=== PATIENT | female | born 1985 | race Caucasian/White ===

== ENCOUNTER 2018-02-03 17:10 | Inpatient (IN) | payer OTHER ==
[~2018-02-03] VITALS: Ht 170.2 cm; Wt 57.7 kg
[2018-02-03 17:26] VITALS: BP 111/68
--- NOTE | 2018-02-03 17:34 | NUR ---
PATIENT STATES SHE DRINK A PINT OF ALCOHOL PER DAY, DID DRINK THIS AM AND WILL BEGIN WITHDRAWALS BY MORNING IF SHE IS ADMITTED
[2018-02-03 17:52] LABS: ABSOLUTE EOSINOPHILS 0.1 thou/uL (0.0-0.7); ABSOLUTE LYMPHOCYTES 1.1 thou/uL (0.8-5.3); ABSOLUTE MONOCYTES 0.5 thou/uL (0.0-1.2); ABSOLUTE NEUTROPHILS 6.9 thou/uL (1.6-8.1); BASOPHILS 0.4 %; EOSINOPHILS 0.8 %; HEMOGLOBIN 14.5 gm/dL (12.0-15.0); LYMPHOCYTES 12.3 %; MCH 34.5 pg (26.0-34.0); MCHC 33.6 g/dL (28.0-37.0); MCV 102.7 fL (80.0-100.0); MONOCYTES 6.3 %; MPV 8.6 fl. (7.2-11.1); NUCLEATED RBCS 0 /100WBC; PLATELET COUNT* 169 thou/uL (150-400); POLYS 80.2 %; RBC 4.19 mil/uL (4.20-5.00); RDW-CV 17.5 % (10.5-14.5); WBC 8.6 thou/uL (4.0-11.0)
[2018-02-03 18:03] LABS: CALCIUM 8.8 mg/dL (8.5-10.1); CREATININE 0.7 mg/dL (0.6-1.3)
[2018-02-03 18:08] LABS: TOTAL BILIRUBIN 0.3 mg/dL (<0.1-1.0)
[2018-02-03 18:17] LABS: URINE BILIRUBIN NEGATIVE (Negative); URINE BLOOD TRACE (Negative); URINE CLARITY CLEAR; URINE COLOR YELLOW; URINE GLUCOSE-RANDOM NEGATIVE (Negative); URINE KETONES NEGATIVE (Negative); URINE LEUKOCYTES-REFLEX NEGATIVE (Negative); URINE NITRITE-REFLEX NEGATIVE (Negative); URINE PROTEIN NEGATIVE (Negative); URINE UROBILINOGEN 0.2 E.U./dl (0.2-1.0)
[2018-02-03 18:25] LABS: AMP/METHAMP Negative (Negative); BARBITURATES Negative (Negative); BENZODIAZEPINES Negative (Negative); COCAINE Negative (Negative); METHADONE Negative (Negative); OPIATES POSITIVE (Negative); PCP Negative (Negative); THC POSITIVE (Negative)
--- NOTE | 2018-02-03 19:05 | NUR ---
HANDOFF REPORT GIVEN TO JERSON CASTRO.
[2018-02-03 19:54] LABS: PROTIME 10.2 Seconds (9.20-11.50)
[2018-02-03 19:56] LABS: CALCIUM 8.8 mg/dL (8.5-10.1); MAGNESIUM 1.7 mg/dL (1.8-2.4); PHOSPHORUS* 3.2 mg/dL (2.5-4.9)
[2018-02-03 21:15] VITALS: BP 105/87
[2018-02-03 21:21] VITALS: BP 111/63
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
[2018-02-03 23:53] VITALS: BP 110/65
--- NOTE | 2018-02-04 01:41 | NUR ---
CHAY TESTPERFORMED PER PROTOCOL.PT SCORES 3 AT THIS TIME. APPEARS CALM. MORPHINE ADMI FOR PAIN IN L ABDOMENT. CONTINUE ON K PROTOCOL.
[2018-02-04 04:00] VITALS: BP 112/73
[2018-02-04 05:17] LABS: HEMATOCRIT 36.2 % (37.0-47.0); MCH 34.5 pg (26.0-34.0); MCHC 33.1 g/dL (28.0-37.0); MCV 104.2 fL (80.0-100.0); MPV 8.8 fl. (7.2-11.1); RBC 3.47 mil/uL (4.20-5.00); RDW-CV 17.6 % (10.5-14.5); WBC 5.9 thou/uL (4.0-11.0)
[2018-02-04 06:05] LABS: ALBUMIN 2.4 g/dL (3.4-5.0); CALCIUM 7.6 mg/dL (8.5-10.1); CREATININE 0.6 mg/dL (0.6-1.3); MAGNESIUM 2.2 mg/dL (1.8-2.4); POTASSIUM 3.8 mmol/L (3.5-5.1); TOTAL BILIRUBIN 0.4 mg/dL (<0.1-1.0); TOTAL PROTEIN 5.6 g/dL (6.4-8.2)
--- NOTE | 2018-02-04 08:10 | NUR ---
RECEIVED REPORT. ASSUMED CARE OF PT AT 0730. VSS. CARDIAC MONITORING IN PLACE ST. AM ASSESSMENT AND VITALS COMPLETED CHARTED. PT ALERT AND ORIENTED. PT TEARFUL THIS AM DUE TO ANXEITY AND PAIN. PRN ANXEITY AND PAIN MEDS GIVEN. PT NPO. PT IS UP WITH STAND BY ASSISTNACE. CIWA COMPLETED CHARTED. PT INFORMED OF PLAN OF CARE. PT COMMUNICATES UNDERSTANDING. CALLLIGHT IS WITHIN REACH. WILL CONTINUE TO MONITOR.
[2018-02-04 08:37] VITALS: BP 117/63
--- NOTE | 2018-02-04 11:16 | NUR ---
PT CALLED OUT STATING SHE WAS HAVING A PANIC ATTACK. THIS NURSE IN TO GIVE PT PRN ATIVAN. PT WAS DRESSED AND SAID SHE WANTS TO GO. PT STATES SHE CAN NOT GET AHOLD OF HER CHILDREN AND SHE NEEDS TO LEAVE. OFFERED TO TRY AND GET AHOLD OF PT'S FAMILY PT REFUSES. OFFERED PT ATIVAN AND PT REFUSES. PT REQUESTING TO LEAVE AMA. PT INFORMED OF WHAT AMA MEANS PT COMMUNICATES UNDERSTANDING. PT SIGNED AMA FORM. PT'S PERSONAL BELONGINGS GATHERED AND SENT WITH PT. PT ESCORTED OFF UNIT WITH W/C AND NURSE. PT TRYING TO CALL FOR A RIDE. PT TAKEN TO ER WAITING ROOM TO WAIT FOR HER RIDE. DR. KENDRA LOCO.
[2018-02-08 07:10] LABS: HEPATITIS B SURFACE AG Negative (Negative)
--- NOTE | 2018-02-16 14:18 | EKG ---
[place] [address] ELECTROCARDIOGRAM REPORT Name: OFELIA GONZALES Room: [address] IN M.R.#: [id number] Admission: 02/03/18 Attend Phys: Osman Linn, Discharge: 02/04/18 Date of : 81 Report #: [id number] THIS REPORT FOR: //name// Test Date: 2018-02-03 Test Time: 17:51:26 Pat Name: OFELIA GONZALES Department: Room: [facility] Gender: F Medical Transport Specialist: MAURY : 1985 Requested By: Sofya Haddad Order Number: [id number] MD: Measurements Intervals [place] Rate: 105 P: 66 TN: 138 QRS: 78 QRSD: 78 T: 68 QT: 345 QTc: 457 Interpretive Statements Sinus tachycardia No previous ECG available for comparison [email or web address] By: [id number] Bob Olmos MD, FACC /EPI
== END 2018-02-04 11:20 | disposition left against medical advice (07) | DRG 439 ==
LOC: M.ERS 17:10 → M.TBA-ER 18:36 → M.2W 21:22
PROVIDERS: Nurse Practitioner Family; ADMIT Family Medicine
DX: K85.20 Alcohol induced acute pancreatitis without necrosis or infection (principal); F10.239 Alcohol dependence with withdrawal, unspecified; F32.9 Major depressive disorder, single episode, unspecified; F12.10 Cannabis abuse, uncomplicated; Z53.21 Procedure and treatment not carried out due to patient leaving prior to being seen by health care provider; Z91.19 Patient's noncompliance with other medical treatment and regimen

== ENCOUNTER 2018-02-04 16:41 | Inpatient (IN) | payer OTHER ==
[~2018-02-04] VITALS: Ht 170.2 cm; Wt 57.7 kg
[2018-02-04 16:49] VITALS: BP 132/63
[2018-02-04 17:13] LABS: ABSOLUTE BASOPHILS 0.1 thou/uL (0.0-0.2); ABSOLUTE EOSINOPHILS 0.1 thou/uL (0.0-0.7); ABSOLUTE LYMPHOCYTES 1.1 thou/uL (0.8-5.3); ABSOLUTE MONOCYTES 0.3 thou/uL (0.0-1.2); BASOPHILS 1.3 %; HEMATOCRIT 37.9 % (37.0-47.0); HEMOGLOBIN 12.7 gm/dL (12.0-15.0); LYMPHOCYTES 23.9 %; MCH 34.7 pg (26.0-34.0); MCHC 33.4 g/dL (28.0-37.0); MCV 103.9 fL (80.0-100.0); MONOCYTES 6.1 %; MPV 8.6 fl. (7.2-11.1); NUCLEATED RBCS 0 /100WBC; PLATELET COUNT* 142 thou/uL (150-400); POLYS 66.7 %; RBC 3.65 mil/uL (4.20-5.00); WBC 4.5 thou/uL (4.0-11.0)
[2018-02-04 17:28] LABS: ALBUMIN 2.7 g/dL (3.4-5.0); CREATININE 0.6 mg/dL (0.6-1.3); POTASSIUM 3.3 mmol/L (3.5-5.1); TOTAL BILIRUBIN 0.4 mg/dL (<0.1-1.0); TOTAL PROTEIN 6.2 g/dL (6.4-8.2)
[2018-02-04 23:05] VITALS: BP 120/78
--- NOTE | 2018-02-05 01:03 | NUR ---
PT BOARDED IN ER. ASSESSMENT DOCUMENTED. MEDS GIVEN PER E-MAR. IV PATENT, FLUIDS INFUSING. PT REPORTED PAIN, PAIN MEDS GIVEN PER E-MAR. AFTER ASSESSMENT PT STATED THAT SHE COULD NO LONGER STAY HERE. PT STATED THAT DRINKING WAS THE ONLY WAY TO GET RID OF HER PAIN. PT EDUCATED THAT LEAVING AMA AND DRINKING WOULD MAKE HER SITUATION WORSE. PT STATED UNDERSTANDING BUT STILL WANTED TO LEAVE. AMA PAPERWORK SIGNED. IV REMOVED. WILL NOTIFY PHYSICIAN.
== END 2018-02-05 00:37 | disposition left against medical advice (07) | DRG 439 ==
LOC: M.ERS 16:41 → M.TBA-ER 18:15
PROVIDERS: Physician Assistant; ADMIT Internal Medicine
DX: K85.20 Alcohol induced acute pancreatitis without necrosis or infection (principal); K86.3 Pseudocyst of pancreas; K86.0 Alcohol-induced chronic pancreatitis; F19.90 Other psychoactive substance use, unspecified, uncomplicated; Z53.21 Procedure and treatment not carried out due to patient leaving prior to being seen by health care provider; F17.210 Nicotine dependence, cigarettes, uncomplicated; F10.20 Alcohol dependence, uncomplicated; E86.0 Dehydration; Z85.828 Personal history of other malignant neoplasm of skin; Z91.14 Patient's other noncompliance with medication regimen